=== PATIENT | female | born 1965 | race Caucasian/White ===

== ENCOUNTER 2019-02-10 16:21 | Emergency (ER) | payer BC ==
[2019-02-10 16:41] VITALS: BP 142/80
[2019-02-10] MEDS: Lidocaine 1% 20 ML MDV ONE (16:49)
[2019-02-10] MEDS: Lidocaine 1% 50 ML MDV INJECT ONE (16:56)
[2019-02-10] MEDS: Lidocaine 1% 20 ML MDV INJECT ONE (16:56)
[2019-02-10] MEDS: Diphtheria,Pertussis(Acell),Tetanus Vaccine 0.5 ML SDV IM ONE (16:57)
[2019-02-10] MEDS: Bacitracin/Neomycin/Polymyxin B Oint 0.9 GM U/D Packet TOP ONE (17:06)
--- NOTE | 2019-02-10 17:10 | EDM.PDOC ---
ED HPI GENERAL MEDICAL PROBLEM - General Chief Complaint: Laceration Stated Complaint: LACERATION Time Seen by Provider: 02/10/19 17:05 Source of Information: Reports: Patient History Limitations: Reports: No Limitations - History of Present Illness INITIAL COMMENTS - FREE TEXT/NARRATIVE: Patient is a 53-year-old female who presents to the emergency department this afternoon with a complaint of right index finger laceration. Patient states that she was repairing a fence and was cut on sharp metal. Not current with tetanus vaccine and will be given one today. Patient denies any difficulty with range of motion of the finger, or any other injury. Onset: Today, Sudden Duration: Minutes: Location: Reports: Upper Extremity, Right Quality: Reports: Burning Severity: Mild Improves with: Reports: None Worsens with: Reports: None Context: Reports: Trauma Associated Symptoms: Reports: No Other Symptoms right hand Pain Score (Numeric/FACES): 7 - Related Data Allergies Allergy/AdvReac Type Severity Reaction Status Date / Time cephalexin monohydrate Allergy Itching Verified 02/10/19 16:45 [From [facility]] Home Meds: Home Meds Allopurinol [Zyloprim] 300 mg PO DAILY 04/30/15 [History] Aspirin [Halfprin] 81 mg PO DAILY 04/30/15 [History] Calcium Citrate/Vitamin D3 [Calcium Cit-Vit D 315-200] 1 each PO BID 04/30/15 [ History] Cholecalciferol (Vitamin D3) [Vitamin D3] 1,000 unit PO DAILY 04/30/15 [History] Cyanocobalamin (Vitamin B-12) [B-12] 1,000 mcg PO DAILY 04/30/15 [History] Ferrous Sulfate 325 mg PO WITHBREAKFAST 04/30/15 [History] Levothyroxine [Synthroid] 88 mcg PO ACBREAKFAST 04/30/15 [History] Magnesium Citrate 300 mg PO DAILY 04/30/15 [History] Minoxidil [Hair Regrowth Treatment] 60 ml TOP ASDIRECTED 04/30/15 [History] Multivitamin with Minerals [Multiple Vitamin] 1 tab PO DAILY 04/30/15 [History] [place]-3 Fatty Acids [[place]ve-3] 1,000 mg PO DAILY 04/30/15 [History] Spironolactone [Aldactone] 100 mg PO BID 04/30/15 [History] atorvaSTATin [Lipitor] 40 mg PO BEDTIME 04/30/15 [History] metFORMIN [Glucophage] 500 mg PO DAILY 04/30/15 [History] Acetaminophen [Tylenol] 650 mg PO QID #0 tablet 05/07/15 [Rx] oxyCODONE 10 mg PO TID PRN #25 tablet 05/07/15 [Rx] Amoxicillin 500 mg PO TID #15 tablet 02/10/19 [Rx] Past Medical History HEENT History: Reports: None Cardiovascular History: Reports: High Cholesterol Respiratory History: Reports: None Gastrointestinal History: Reports: None Genitourinary History: Reports: None Musculoskeletal History: Reports: None Neurological History: Reports: None Psychiatric History: Reports: None Endocrine/Metabolic History: Reports: Hypothyroidism Hematologic History: Reports: None Immunologic History: Reports: None Oncologic (Cancer) History: Reports: None Dermatologic History: Reports: None - Past Surgical History HEENT Surgical History: Reports: None Cardiovascular Surgical History: Reports: None Respiratory Surgical History: Reports: None GI Surgical History: Reports: None Female Surgical History: Reports: Hysterectomy Musculoskeletal Surgical History: Reports: None Social & Family History - Family History Family Medical History: Noncontributory - Tobacco Use Smoking Status *Q: Never Smoker - Caffeine Use Caffeine Use: Reports: Soda - Recreational Drug Use Recreational Drug Use: No ED ROS GENERAL - Review of Systems Review Of Systems: ROS reveals no pertinent complaints other than HPI. Constitutional: Reports: No Symptoms HEENT: Reports: No Symptoms Respiratory: Reports: No Symptoms Cardiovascular: Reports: No Symptoms Endocrine: Reports: No Symptoms GI/Abdominal: Reports: No Symptoms : Reports: No Symptoms Musculoskeletal: Reports: Hand Pain (Right index finger) Skin: Reports: Wound (Laceration to the ventral aspect of right index finger) Neurological: Reports: No Symptoms Psychiatric: Reports: No Symptoms Hematologic/Lymphatic: Reports: No Symptoms Immunologic: Reports: No Symptoms ED EXAM, SKIN/RASH Exam: See Below Exam Limited By: No Limitations General Appearance: Alert, WD/WN, No Apparent Distress Throat/Mouth: Normal Inspection, Normal Oropharynx, No Airway Compromise Head: Atraumatic, Normocephalic Respiratory/Chest: No Respiratory Distress Back Exam: Normal Inspection Extremities: Other (Right hand ventral aspect of proximal second digit 3 cm laceration. No visible tendon injury or extension or flexion deficit noted.) Neurological: Alert, Oriented, Normal Cognition Psychiatric: Normal Affect, Normal Mood Skin: Wound/Incision (As above) Location, Skin: Upper Extremity, Right ED SKIN PROCEDURES - Laceration/Wound Repair Right Proximal Ventral Digit - 2nd (Index) Appearance: Superficial Distal NVT: Neuro & Vascular Intact, No Tendon Injury Anesthetic Type: Local Local Anesthesia - Lidocaine (Xylocaine): 1% Plain Local Anesthetic Volume: 2cc Skin Prep: Providone-Iodine (Betadine) Exploration/Debridement/Repair: No Foreign Material Found Closed with: Sutures Suture Size: 4-0 # of Sutures: 8 Suture Type: Nylon, Interrupted Sterile Dressing Applied: Nurse Tetanus Status Addressed: Yes Complications: No Course - Vital Signs Last Recorded V/S: Last Vital Signs Temp 97.6 F 02/10/19 16:32 Pulse 93 02/10/19 16:32 Resp 20 02/10/19 16:32 BP 142/80 H 02/10/19 16:32 Pulse Ox 95 02/10/19 16:32 - Orders/Labs/Meds Orders: Active Orders 24 hr Category Date Time Status Vaccines to be Administered [RC] PER UNIT ROUTINE Care 02/10/19 16:31 Active Meds: Medications Discontinued Medications Generic Name Dose Route Start Last Admin Trade Name Freq PRN Reason Stop Dose Admin Diphtheria/Tetanus/Acell Pertussis 0.5 ml 02/10/19 16:31 02/10/19 16:57 Adacel IM 02/10/19 16:32 0.5 ml .ONCE ONE Administration Lidocaine HCl Confirm 02/10/19 16:43 02/10/19 16:49 Xylocaine 1% Administered 02/10/19 16:44 Not Given Dose 20 ml .ROUTE .STK-MED ONE Lidocaine HCl 20 ml 02/10/19 16:55 02/10/19 16:56 Xylocaine 1% INJECT 02/10/19 16:56 2 ml ONETIME ONE Administration Neomycin/Polymyxin/Bacitracin 2 each 02/10/19 17:03 Triple Antibiotic Oint TOP 02/10/19 17:04 ONETIME ONE - Re-Assessments/Exams Free Text/Narrative Re-Assessment/Exam: 02/10/19 17:12 Patient afebrile, vital signs stable, tolerated procedure well. Patient allergic to Keflex, so given amoxicillin for prophylactic coverage. Patient will follow-up with PCP in 10 days for suture removal Departure - Departure Time of Disposition: 17:13 Disposition: Home, Self-Care 01 Condition: Good Clinical Impression: Finger laceration Qualifiers: Encounter type: initial encounter Finger: index finger Damage to nail status: without damage Foreign body presence: without foreign body Laterality: right Qualified Code(s): S61.210A - Laceration without foreign body of right index finger without damage to nail, initial encounter - Discharge Information Instructions: Sutured Wound Care, [id number], Laceration Care, Adult, Easy-to -Read Referrals: Felicitas Walker PA-C [Primary Care Provider] - Additional Instructions: Follow-up at [facility] in 10 days for suture removal. Return to emergency department sooner if symptoms continue or worsen. Take medication as directed. - My Orders Last 24 Hours: My Active Orders 02/10/19 16:31 Vaccines to be Administered [RC] PER UNIT ROUTINE - Assessment/Plan Last 24 Hours: My Active Orders 02/10/19 16:31 Vaccines to be Administered [RC] PER UNIT ROUTINE Assessment:: Right index finger laceration repair Plan: Follow-up with PCP
== END 2019-02-10 17:20 | disposition home or self-care (01) ==
LOC: KA.ED 16:21
DX: S61.210A Laceration without foreign body of right index finger without damage to nail, initial encounter (principal); E78.00 Pure hypercholesterolemia, unspecified; E03.9 Hypothyroidism, unspecified; W26.8XXA Contact with other sharp object(s), not elsewhere classified, initial encounter; Z79.82 Long term (current) use of aspirin; Z79.899 Other long term (current) drug therapy; Z23 Encounter for immunization
CPT/HCPCS: 12002; 90471; 90715; 96372; 99283; J2001

== ENCOUNTER 2019-04-01 06:47 | Day surgery (SDC) | payer BC ==
[2019-04-01] MEDS ORDERED: Sodium Chloride 0.9% 10 ML Syringe FLUSH PRN (07:00)
[2019-04-01] MEDS ORDERED: Sodium Chloride 0.9% 1,000 ML IV SCH (07:00)
[2019-04-01] MEDS ORDERED: Bupivacaine 0.5% 30 ML SDV ONE (07:06)
[2019-04-01] MEDS ORDERED: ceFAZolin 1 GM Vial ONE (07:07)
[2019-04-01] MEDS ORDERED: Propofol 200 MG/20 ML SDV ONE ×2 (07:08→07:48)
[2019-04-01] MEDS ORDERED: Midazolam 1 MG/ML 2 ML SDV ONE (07:08)
[2019-04-01] MEDS ORDERED: fentaNYL 100 MCG/2 ML SDV ONE (07:08)
[2019-04-01] MEDS ORDERED: Lidocaine 0.5% 50 ML SDV ONE (07:08)
[2019-04-01] MEDS ORDERED: fentaNYL 100 MCG/2 ML SDV IV ONE (08:15)
[2019-04-01] MEDS ORDERED: Midazolam 1 MG/ML 2 ML SDV IV ONE (08:15)
[2019-04-01] MEDS ORDERED: ceFAZolin 1 GM Vial IV ONE (08:15)
[2019-04-01] MEDS ORDERED: Propofol 200 MG/20 ML SDV IV ONE (08:15)
--- NOTE | 2019-04-01 09:18 | PCM.OPNOTE ---
- General Post-Op/Procedure Note Date of Surgery/Procedure: 04/01/19 Operative Procedure(s): Trigger finger release left thumb. Findings: Moderate constriction of the flexor tendons at the A1 to the level was found. Pre Op Diagnosis: Trigger finger left thumb. Post-Op Diagnosis: As above. Anesthesia Technique: Regional Block Primary Surgeon: Taye Vee Complications: None Condition: Good Free Text/Narrative:: Preoperative diagnosis: Trigger finger left thumb. Postoperative diagnosis: As above. Procedure performed: Release trigger finger left thumb. Informed consent was obtained from the patient regarding this procedure. All possible competitions were thoroughly discussed. The patient understands and wishes to proceed. She was kept in the supine position. A satisfactory Royal block anesthetic was administered by the executive steward after adequate exsanguination of the extremity. The hand was positioned to expose the ventral aspect of the thumb the. A skin marking incision was made over the metacarpal phalangeal joint. A horizontal incision was made. Subcutaneous dissection was performed. Both cutaneous nerves were discovered and kept out of harm's way. An elliptical incision was made along the tendon sheath and extended proximally for 1 cm and distally for half centimeter. I then attempted to lock the thumb and was unable to do so. Complete release of the A1 tamika was obtained in this fashion. The tourniquet was released. The skin incision was closed with 4-0 nylon sutures. A sterile pressure dressing was applied. The patient tolerated the procedure well. Blood loss was negligible. Comp occasions were negative. She was transferred to the recovery room in excellent condition.
[2019-04-01 09:46] VITALS: BP 142/89; PULSE 74
== END 2019-04-01 10:12 | disposition home or self-care (01) ==
LOC: KA.SDS 06:47
PROVIDERS: ATTEND Family Medicine
DX: M65.312 Trigger thumb, left thumb (principal); I10 Essential (primary) hypertension; E11.9 Type 2 diabetes mellitus without complications; E03.9 Hypothyroidism, unspecified; E78.2 Mixed hyperlipidemia; E66.01 Morbid (severe) obesity due to excess calories; M19.90 Unspecified osteoarthritis, unspecified site; Z88.1 Allergy status to other antibiotic agents; Z79.84 Long term (current) use of oral hypoglycemic drugs; Z79.899 Other long term (current) drug therapy
CPT/HCPCS: 26055; 82962; J0690; J2250; J2704; J3010

== ENCOUNTER 2022-05-26 11:30 | Emergency (ER) | payer OTHER ==
[2022-05-26 11:40] VITALS: PULSE 84
[2022-05-26] MEDS: Aspirin 81 MG Tab.Chew PO ONE (11:50)
[2022-05-26] MEDS: Nitroglycerin 0.4 MG Tab.SL SL PRN (11:53)
[2022-05-26] MEDS: Sodium Chloride 0.9% 1,000 ML IV SCH (11:56)
[2022-05-26 11:57] VITALS: BP 148/94
[2022-05-26 12:12] LABS: ANION GAP 10.5 mmol/L (5-15); CHLORIDE,CL 104 mmol/L (98-107); SODIUM,NA 137 mmol/L (136-145)
[2022-05-26 12:16] LABS: ESTIMATED GFR 78 mL/min (>=60)
== END 2022-05-26 12:50 | disposition home or self-care (01) ==
LOC: KA.ED 11:30
DX: R07.9 Chest pain, unspecified (principal); M54.2 Cervicalgia; G89.29 Other chronic pain; M25.512 Pain in left shoulder; E11.9 Type 2 diabetes mellitus without complications; E78.00 Pure hypercholesterolemia, unspecified; E03.9 Hypothyroidism, unspecified; Z88.1 Allergy status to other antibiotic agents; Z79.82 Long term (current) use of aspirin; Z79.899 Other long term (current) drug therapy; Z79.84 Long term (current) use of oral hypoglycemic drugs; Z90.49 Acquired absence of other specified parts of digestive tract; Z90.710 Acquired absence of both cervix and uterus
CPT/HCPCS: 36415; 71046; 80053; 84484; 85025; 85379; 93005; 93010; 96360; 99284; 99285-25; A9270-GY; J7030

== ENCOUNTER 2022-11-25 19:25 | Observation (INO) | payer OTHER ==
[2022-11-25] MEDS ORDERED: HYDROmorphone 1 MG/ML Syringe IVPUSH ONE ×3 (19:41→21:10)
[2022-11-25] MEDS ORDERED: Sodium Chloride 0.9% 1,000 ML IV ONE (19:41)
[2022-11-25] MEDS ORDERED: Ondansetron 4 MG/2 ML SDV IVPUSH ONE (19:41)
[2022-11-25] MEDS ORDERED: Sodium Chloride 0.9% 10 ML Syringe FLUSH PRN (19:41)
[2022-11-25 20:45] LABS: ANION GAP 11.3 mmol/L (5-15)
[2022-11-25] MEDS ORDERED: Non-Formulary Medication 1 Each (Albuterol Sulfate [Proair Digihaler] 90 MCG Aer.Pw.Bas) IH PRN (21:46)
[2022-11-25] MEDS ORDERED: Acetaminophen 500 MG Tab PO ONE (21:55)
[2022-11-25] MEDS ORDERED: glipiZIDE 5 MG Tab ONE (22:23)
[2022-11-25] MEDS ORDERED: metFORMIN 500 MG Tab ONE (22:24)
[2022-11-25] MEDS: Sodium Chloride 0.9% 1,000 ML IV SCH (22:30)
[2022-11-25] MEDS ORDERED: glipiZIDE 5 MG Tab PO ONE (22:30)
[2022-11-25] MEDS ORDERED: metFORMIN 500 MG Tab PO ONE (22:30)
[2022-11-25] MEDS ORDERED: Ondansetron 4 MG/2 ML SDV IVPUSH PRN (23:01)
[2022-11-26] MEDS: HYDROmorphone 1 MG/ML Syringe IVPUSH PRN ×4 (00:19→10:59)
[2022-11-26 06:28] VITALS: BP 143/88; PULSE 90
[2022-11-26] MEDS: Sodium Chloride 0.9% 1,000 ML IV SCH (08:43)
[2022-11-26] MEDS ORDERED: metFORMIN 500 MG Tab PO ONE (22:00)
[2022-11-26] MEDS ORDERED: glipiZIDE 5 MG Tab PO ONE (22:00)
== END 2022-11-26 11:16 ==
LOC: KA.ED 19:25 → KA.MS 21:25 → UNDOADMOB 21:30 → KA.MS 21:30 → UNDODISOB 11-26 11:16
PROVIDERS: ADMIT Physician Assistant Medical; ATTEND Nurse Practitioner Family
DX: S22.42XA Multiple fractures of ribs, left side, initial encounter for closed fracture (principal); S82.141A Displaced bicondylar fracture of right tibia, initial encounter for closed fracture; E78.00 Pure hypercholesterolemia, unspecified; E11.9 Type 2 diabetes mellitus without complications; E03.9 Hypothyroidism, unspecified; Z79.890 Hormone replacement therapy; Z79.84 Long term (current) use of oral hypoglycemic drugs; Z79.899 Other long term (current) drug therapy; Z88.1 Allergy status to other antibiotic agents; Z90.49 Acquired absence of other specified parts of digestive tract; W55.22XA Struck by cow, initial encounter
CPT/HCPCS: 36415; 71101-LT; 72170; 73590-RT; 73700-RT; 80053; 81001; 85025; 96361; 96374; 96375; 96376; 99285-25; A9270-GY; G0378; J1170; J2405; J7030